=== PATIENT | female | born 1990 | race Caucasian/White ===

== ENCOUNTER 2022-10-14 18:15 | Emergency (ER) | payer MEDICAID ==
[~2022-10-14] VITALS: Ht 170.2 cm; Wt 86.2 kg
--- NOTE | 2022-10-14 20:00 | NUR ---
TO ER BED 4. BIBS C/O L SIDED HEAD PAIN AND UNEQUAL PUPILS X 2 WEEKS. PAIN NOT RELIEVED BY OTC MEDS. LEFT PUPIL NOTED TO BE SMALLER THAN RIGHT. PT ADMITS TO BLURRY VISION. DENIES ANY TRAUMA. ALERT AND ORIENTED. RR EVEN AND NON LABORED. CONNECTED TO POX AND HEART MONITOR. AWAITING MD STARKS
--- NOTE | 2022-10-14 20:13 | NUR ---
NEURO DR GONZALEZ SPEAKING WITH DR HOLMAN
--- NOTE | 2022-10-14 20:19 | NUR ---
MECHANICAL SERVICE REPRESENTATIVE AT PT'S BEDSIDE
--- NOTE | 2022-10-14 20:23 | NUR ---
IV LINE ESTABLISHED , [id number]
--- NOTE | 2022-10-14 20:24 | NUR ---
BLOOD COLLECTED AND SENT TO LAB
[2022-10-14 20:42] LABS: BASOPHILS % (AUTO) 0.3 % (0.0-2.0); EOSINOPHILS % (AUTO) 1.7 % (0.0-6.0); HEMATOCRIT 42 % (33-45); HEMOGLOBIN 13.6 g/dL (11.5-14.8); LYMPHOCYTES % (AUTO) 25.1 % (20.0-44.0); MEAN CORPUSCULAR HGB CONC 33 g/dl (31.0-36.0); MEAN CORPUSCULAR VOLUME 92 fL (82-100); MONOCYTES # (AUTO) 0.6 K/uL (0.1-1.30); MONOCYTES % (AUTO) 8.1 % (2.0-12.0); NEUTROPHILS # (AUTO) 5.1 K/uL (1.8-8.9); NEUTROPHILS % (AUTO) 64.8 % (43.0-81.0); PLATELET COUNT (AUTO) 204 K/uL (150-450); RED BLOOD CELL COUNT(AUTO) 4.51 MIL/uL (4.0-5.2); WHITE BLOOD COUNT (AUTO) 7.9 K/uL (4.3-11.0)
[2022-10-14 20:49] LABS: CREATININE 0.8 mg/dL (0.6-1.3); POTASSIUM 3.8 mmol/L (3.5-5.1)
--- NOTE | 2022-10-14 21:35 | NUR ---
PT TAKEN TO CT VIA [facility]
[2022-10-14] MEDS ORDERED: IOHEXOL-350 100 ML VIAL IV ONE (21:38)
--- NOTE | 2022-10-14 21:50 | NUR ---
PT RETURNED FROM CT SCAN VIA [facility], RECONNECTED TO MONITOR
[2022-10-14] MEDS ORDERED: KETOROLAC TROMETHAMINE INJ 30 MG/ML VIAL ONE (22:23)
[2022-10-14] MEDS ORDERED: IBUP-1955 PO (22:28)
[2022-10-14] MEDS ORDERED: KETOROLAC TROMETHAMINE INJ 30 MG/ML VIAL IV ONE (22:30)
[2022-10-14 22:39] VITALS: BP 121/70
--- NOTE | 2022-10-14 22:39 | NUR ---
Patient discharged to home in stable condition. Written and verbal after care instructions given. Patient verbalizes understanding of instruction.
--- NOTE | 2022-10-14 22:39 | NUR ---
IV removed. Catheter intact and site benign. Pressure and 4x4 applied to site. No bleeding noted.
== END 2022-10-14 22:40 | disposition home or self-care (01) ==
LOC: ER 18:27
DX: H57.02 Anisocoria (principal); H57.09 Other anomalies of pupillary function; R51.9 Headache, unspecified
CPT/HCPCS: 99285; 70450; 96374; 70496; 85025; 80048; 84703; 36415; J1885; Q9967